=== PATIENT | male | born 1990 | race Caucasian/White ===

== ENCOUNTER → 2016-08-12 12:51 | Outpatient (CLI) | payer OTHER ==
[2015-04-04 10:54] VITALS: BMI 33.5
[~2016-08-12 12:51] MED LIST: HYDROCODONE-APA1 TAB PO
== END | disposition home or self-care (01) ==
LOC: D.MRI 12:51
DX: S83.511A Sprain of anterior cruciate ligament of right knee, initial encounter (principal)

== ENCOUNTER 2016-09-17 05:40 | Day surgery (SDC) | payer OTHER ==
[~2016-09-17] VITALS: Ht 180.3 cm; Wt 113.4 kg
[2016-09-17 09:19] VITALS: BP 130/74; Ht 180.3 cm; Wt 113.4 kg
[2016-09-17] MEDS ORDERED: HYDROCODONE-APA1 TAB PO (11:25)
--- NOTE | 2016-09-17 13:17 | NUR ---
1310 DISCHARGE INSTRUCTIONS REVIEWED WITH PATIENT; VERBALIZED UNDERSTANDING; DENIES NAUSEA; IV DC'D. TO B/R; VOIDED MOD AMT
--- NOTE | 2016-09-21 10:12 | OP ---
PATIENT NAME: THELMA DOWNING MEDICAL RECORD: [id number] :90 LOCATION:D.OPS ADMISSION DATE: SURGEON: ESPINOZA OCAMPO MD DATE OF OPERATION: 09/17/2016 Orthopedic Surgery Operative Note PREOPERATIVE DIAGNOSIS: Recurrent medial meniscus tear of the right knee. POSTOPERATIVE DIAGNOSIS: Recurrent medial meniscus tear of the right knee. PROCEDURE: Arthroscopic subtotal medial meniscectomy. SURGEON: Espinoza Ocampo MD ANESTHESIA: General. INTRAOPERATIVE COMPLICATIONS: None. SUMMARY OF PATHOLOGIC FINDINGS: The patient had an undersurface tear at near meniscal rim junction. It was torn. This was debrided back the length of the tear and then smoothened off for all the remaining meniscal elements were not torn. OPERATIVE SUMMARY IN DETAIL: After obtaining the appropriate preoperative orthopedic surgery consents as well as anesthetic consultation, evaluation and clearance, the patient was brought to the operating room and placed on the operating table in supine position. After general laryngeal mask was administered, tourniquet was placed about the proximal aspect of the right lower extremity. The right lower extremity was then prepped and draped in routine sterile fashion. The leg was elevated and exsanguinated, tourniquet inflated to 350 mmHg. Routine inferolateral portal was established followed by superomedial portal and inferomedial portal. Diagnostic arthroscopy revealed the above findings. A combination of arthroscopic meniscotome as well as a torpedo resector were utilized to debride the meniscus back to stable meniscal elements. Having completed this, the knee was insufflated with 30 cc of 0.25% Marcaine with epinephrine and 40 mg of Depo-Medrol. Arthroscopy portals were closed in routine interrupted fashion using 4-0 Prolene. Sterile dressings were applied. The patient was awakened, taken to recovery room in stable condition. All final needle and sponge counts were correct. TRANSINT:[id number] Voice Confirmation ID: [id number] DOCUMENT ID: [id number] TERRENCE KAPLAN, ESPINOZA VENEGAS at 1012 CC: [id number] DICTATION DATE: 09/17/16 1128 TELEPHONE INTERCEPTOR OPERATOR: 09/17/16 1445 DEP [facility] [place]/17/16 [place] [address]
== END 2016-09-17 13:15 | disposition home or self-care (01) ==
LOC: D.OPS 05:40 → D.PAN 11:15 → D.OPS 13:15 → D.PAN 13:30 → D.OPS 13:30
DX: S83.241A Other tear of medial meniscus, current injury, right knee, initial encounter (principal)